=== PATIENT | male | born 1945 | race African-American/Black ===

== ENCOUNTER 2018-12-06 11:22 | Inpatient (IN) | payer BC, OTHER ==
[2018-12-06 12:14] VITALS: BMI 18.0
--- NOTE | 2018-12-06 15:49 | HP ---
CIWA Score - Admission Criteria [facility] Guidelines: Admission for Medically Managed Detox: Requires at least one of the followin. CIWA greater than 12 2. Seizures within the past 24 hours 3. Delirium tremens within the past 24 hours 4. Hallucinations within the past 24 hours 5. Acute intervention needed for co occurring medical disorder 6. Acute intervention needed for co occurring psychiatric disorder 7. Severe withdrawal that cannot be handled at a lower level of care (continued vomiting, continued diarrhea, abnormal vital signs) requiring intravenous medication and/or fluids 8. Admission ROS S - HPI Chief Complaint: "I am tired of being High." Patient is a YO male here for Rehab for Cocaine, Marijuana, and Alcohol use. Allergies/Adverse Reactions: Allergies Allergy/AdvReac Type Severity Reaction Status Date / Time No Known Allergies Allergy Verified 12/06/18 15:03 History of Present Illness: Patient is a 73 YO male here for Rehab for Cocaine, Marijuana, and Alcohol use. This is patient's first Rehab admission ever. Patient denies any history of Detox admission anywhere. Exam Limitations: No Limitations - Ebola screening Have you traveled outside of the country in the last 21 days: No Have you had contact with anyone from an Ebola affected area: No Have you been sick,other than usual withdrawal symptoms: No Do you have a fever: No - Review of Systems Constitutional: Loss of Appetite, Malaise, Unintentional Wgt. Loss (Lost approx. 40 lbs. over last Six months.) EENT: reports: No Symptoms Reported Respiratory: reports: No Symptoms reported, Shortness of Breath (Interrmittent, Patient reports this to be due to history of "Enlarged Heart." Uses MDI PRN to treat.) Cardiac: reports: No Symptoms Reported GI: reports: No Symptoms Reported : reports: No Symptoms Reported Musculoskeletal: reports: Joint Pain (Bilateral Feet, History of Gout.) Integumentary: reports: Other (Multiple Skin Ulcers on soles of bilateral feet.) Neuro: reports: No Symptoms reported Endocrine: reports: No Symptoms Reported Hematology: reports: No Symptoms Reported Psychiatric: reports: Judgement Intact, Mood/Affect Appropiate, Orientated x3, Depressed (Due to Current Life Circumstances.) Other Systems: Reviewed and Negative Patient History - Patient Medical History Hx Anemia: No Hx Asthma: No Hx Chronic Obstructive Pulmonary Disease (COPD): No Hx Cancer: No Hx Cardiac Disorders: Yes (enlarged heart; Only treated with ASA, 81mg. History of 3 MS's.) Hx Congestive Heart Failure: No Hx Hypertension: No Hx Hypercholesterolemia: No Hx Pacemaker: No HX Cerebrovascular Accident: No Hx Seizures: No Hx Dementia: No Hx Diabetes: No Hx Gastrointestinal Disorders: No Hx Liver Disease: No Hx Genitourinary Disorders: No Hx Sexually Transmitted Disorders: No Hx Renal Disease (ESRD): No Hx Thyroid Disease: No Hx Human Immunodeficiency Virus (HIV): No (Tested 2 days ago: NEGATIVE.) Hx Hepatitis C: No (Tested 2 days ago: NEGATIVE.) Hx Depression: Yes (Due to Current Life Circumstances. No Past Prescribed Medication.) Hx Suicide Attempt: No (PATIENT DENIES CURRENT SI / HI.) Hx Bipolar Disorder: No Hx Schizophrenia: No Other Medical History: Gout of Bilateral Feet. - Patient Surgical History Past Surgical History: No Hx Neurologic Surgery: No Hx Cataract Extraction: No Hx Cardiac Surgery: No Hx Lung Surgery: No Hx Breast Surgery: No Hx Breast Biopsy: No Hx Abdominal Surgery: No Hx Appendectomy: No Hx Cholecystectomy: No Hx Genitourinary Surgery: No Hx Section: No Hx Orthopedic Surgery: No Other Surgical History: DENIES. Anesthesia Reaction: No - PPD History Previous Implant?: Yes Documented Results: Positive w/o proof (Completed Full course of Antibiotic Treatment approx. 20 years ago.) Implanted On Prior [facility] Admission?: No PPD to be Administered?: No - Reproductive History Patient is a Female of Child Bearing Age (11 -55 yrs old): No (PATIENT IS MALE.) - Smoking Cessation Smoking history: Current some day smoker Have you smoked in the past 12 months: Yes Aproximately how many cigarettes per day: 4 Cigars Per Day: 0 Hx Chewing Tobacco Use: No Initiated information on smoking cessation: Yes 'Breaking Loose' booklet given: 12/06/18 (GIVEN TO PATIENT.) - Substance & Tx. History Hx Alcohol Use: Yes Hx Substance Use: Yes Substance Use Type: Alcohol, Cocaine, Marijuana Hx Substance Use Treatment: No - Substances Abused Crack Route: Smoking Frequency: Daily Amount used: $300-400 Age of first use: 52 Date of Last Use: 12/05/18 Alcohol-vodka Route: Oral Frequency: 3-6 times per week Amount used: 1 shot Age of first use: 10 Date of Last Use: 12/05/18 Marijuana/Hashish Route: Smoking Frequency: 1-2 times per week Amount used: < 1 Joint. Age of first use: 22 Date of Last Use: 12/02/18 Family Disease History - Family Disease History Family History: Denies Admission Physical Exam [facility] - Vital Signs Vital Signs: Vital Signs - 24 hr 12/06/18 12:08 Temperature 99.7 F H Pulse Rate 83 Respiratory 20 Rate Blood Pressure 120/70 - Physical General Appearance: Yes: No Apparent Distress, Nourished, Appropriately Dressed , Anxious HEENTM: Yes: Hearing grossly Normal, Normocephalic, Normal Voice, NIKO, Pharynx Normal Respiratory: Yes: Chest Non-Tender, No Respiratory Distress, No Accessory Muscle Use, Wheezing Neck: Yes: No masses,lesions,Nodules, Supple, Trachea in good position Breast: Yes: Breast Exam Deferred Cardiology: Yes: Regular Rhythm, Regular Rate, S1, S2 Abdominal: Yes: Normal Bowel Sounds, Non Tender, Flat, Soft Genitourinary: Yes: Within Normal Limits Back: Yes: Decreased Range of Motion Musculoskeletal: Yes: full range of Motion, Gait Steady, Joint Stiffness (Toes of Bilateral Feet.) Extremities: Yes: Normal Capillary Refill, Other (Patient reports pain (chronic ) in bilateral feet. No erythema or swelling noted on inspection of bilateral feet and toes.) 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: Yes: Fully Oriented, Alert, Normal Mood/Affect, Normal Response Integumentary: Yes: Normal Color, Dry, Warm, Other (Severely dry skin noted throughout on bilateral feet. Multiple ulcerations noted on bilateral feet. No erythema, discharge, or signs of infection noted at affected ulceration sites.) Lymphatic: Yes: Within Normal Limits - Diagnostic (1) Alcohol dependence, uncomplicated Current Visit: Yes Status: Chronic (2) Cocaine dependence, uncomplicated Current Visit: Yes Status: Chronic (3) Cannabis dependence, uncomplicated Current Visit: Yes Status: Chronic (4) Nicotine dependence Current Visit: Yes Status: Chronic Qualifiers: Nicotine product type: cigarettes Substance use status: uncomplicated Qualified Code(s): F17.210 - Nicotine dependence, cigarettes, uncomplicated (5) Ulcer of foot Current Visit: Yes Status: Acute Qualifiers: Laterality: unspecified laterality Non-pressure ulcer stage: limited to breakdown of skin Qualified Code(s): L97.501 - Non-pressure chronic ulcer of other part of unspecified foot limited to breakdown of skin Comment: Bilateral Feet. (6) Enlarged heart Current Visit: Yes Status: Suspected Cleared for Admission [facility] - Detox or Rehab Claeared for Rehab Admission: Yes [facility] Breath Alcohol Content Breath Alcohol Content: 0 Urine Drug Screen - Results Drug Screen Negative: No Urine Drug Screen Results: LANIE-Cocaine Inpatient Rehab Admission - Initial Determination Are CD services needed?: Yes Free of communicable disease: Yes Not in need of hospitalization: Yes - Rehab Admission Criteria Poor recovery environment: Yes Comorbidities: Yes Patient is meeting Inpatient Rehab admission criteria:: Yes
[2018-12-06] MEDS ORDERED: ALBUTEROL SO4 8 GM HFA INHALER IH PRN (15:51)
[2018-12-06] MEDS ORDERED: ALBUTEROL SO4 2.5/IPRATROPIUM 0.5 INH SOL 3 ML VIAL.NEB. NEB PRN (15:52)
[2018-12-06] MEDS ORDERED: P-EPHED 60MG/TRIPROLIDI 2.5MG TABLET PO PRN (16:09)
[2018-12-06] MEDS ORDERED: ACETAMINOPHEN 325 MG TABLET (FP) PO PRN (16:09)
[2018-12-06] MEDS ORDERED: MAGNESIUM CITRATE 300 ML BOTTLE PO PRN (16:09)
[2018-12-06] MEDS ORDERED: MENTHOL/PHENOL 1 EACH UD MM PRN (16:09)
[2018-12-06] MEDS ORDERED: LOPERAMIDE HCL 2 MG CAPSULE PO PRN (16:09)
[2018-12-06] MEDS ORDERED: MAGNESIUM HYDROX 2400MG/30ML ORAL SUSPENSION 30 ML CUP PO PRN (16:09)
[2018-12-06] MEDS ORDERED: MAG HYDROX/AL HYDROX/SIMETH 30 ML UNIT-DOSE CUP PO PRN (16:09)
[2018-12-06] MEDS ORDERED: IBUPROFEN 400 MG TABLET (FP) PO PRN (16:09)
[2018-12-06] MEDS ORDERED: POVIDONE-IODINE 10% SOLN 118 ML BOTTLE TP ONE (16:16)
[2018-12-06] MEDS ORDERED: SILVER SULFADIAZINE 1% TOP CREAM 50 GM JAR TP SCH (16:45)
[2018-12-06] MEDS: VITAMINS A AND D TOPICAL OINTMENT 60 GM TUBE TP SCH ×2 (18:05→21:20)
[2018-12-06] MEDS: ASPIRIN COATED 81 MG TABLET.EC PO SCH (18:05)
--- NOTE | 2018-12-06 18:34 | PN ---
S Progress Note Note: Objective: Patient has multiple dried, circular lesions on both feet at pressure sites. Skin on feet feet and between toes very dry and flaky with cracks. Toe nails are overgrown, thickened, flaky and dark in color. Assessment: Tinea Pedis Onychomycosis Plan: Tolnaftate cream BID (0600/1700) to feet Eucerine cream to feet HS Notify provider of any open sores or drainage.
[2018-12-06] MEDS: THIAMINE HCL 100 MG TABLET (FP) PO SCH (21:19)
[2018-12-06] MEDS: MINERAL OIL/PETROLAT/WATER TOPICAL CREAM 454 GM JAR TP SCH (21:21)
[2018-12-06] MEDS ORDERED: MELATONIN 5 MG TABLETS PO PRN (22:00)
[2018-12-07] MEDS: TOLNAFTATE 1% CREAM 15 GM TUBE TP SCH ×2 (06:01→17:08)
[2018-12-07] MEDS ORDERED: PT OWN MED DRAWER 7, Y5N ONE (06:58)
[2018-12-07 10:10] LABS: URINE APPEARANCE CLEAR; URINE BILIRUBIN NEGATIVE (<2.0 mg/dL); URINE COLOR LTYELLOW; URINE GLUCOSE (UA) NEGATIVE (NEGATIVE); URINE KETONE NEGATIVE (NEGATIVE); URINE LEUK ESTERASE NEGATIVE (NEGATIVE); URINE NITRITE NEGATIVE (NEGATIVE); URINE PROTEIN NEGATIVE (NEGATIVE); URINE UROBILINOGEN NEGATIVE mg/dL (0.2-1.0)
[2018-12-07] MEDS: ASPIRIN COATED 81 MG TABLET.EC PO SCH (11:34)
[2018-12-07] MEDS: VITAMINS A AND D TOPICAL OINTMENT 60 GM TUBE TP SCH ×4 (11:35→23:22)
[2018-12-07] MEDS: PRENATAL VITAMINS W/ FOLIC ACID TABLET (FP) PO SCH (11:36)
--- NOTE | 2018-12-07 14:42 | HP ---
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 Smokes 3-4 cigarettes daily Psychiatric History: Denies history of previous psychiatric treatment Physical/Sexual Abuse/Trauma History: Denies history of emotional, physical or sexual abuse as well as DV relationship. No service Additional Comment: Denies criminal history Vital Signs: Vital Signs - 24 hr 12/07/18 12/07/18 12/07/18 00:30 03:30 06:45 Temperature 98.4 F Pulse Rate 79 Respiratory 18 18 18 Rate Blood Pressure 122/70 Allergies/Adverse Reactions: Allergies Allergy/AdvReac Type Severity Reaction Status Date / Time No Known Allergies Allergy Verified 12/06/18 15:03 Date of last physical exam: 12/06/18 Concur with the findings of this exam: Yes - Substance Abuse/Tx History Hx Alcohol Use: Yes Hx Substance Use: Yes Substance Use Type: Alcohol (Started drinking alcohol at age 10, consumes one shot 3-6 times weekly. Last drank on 12/05/18), Cocaine (Startedsmoking crack cocaine at age 52, consumes $300-400 daily. Last smoked on 12/05/18), Marijuana ( Started smoking marijuana at age 22, consumes one joint 1-2 times daily. Last smoked on 12/02/18) Hx Substance Use Treatment: No Mental Status Exam - Mental Status Exam Alert and Oriented to: Time, Place, Person Cognitive Function: Fair Patient Appearance: Disheveled Mood: Irritable Affect: Appropriate Patient Behavior: Uncooperative Speech Pattern: Clear Voice Loudness: Normal Thought Process: Intact, Goal Oriented Hallucinations: Denies Suicidal Ideation: Denies Homicidal Ideation: Denies Insight/Judgement: Fair Sleep: Well Appetite: Poor Muscle strength/Tone: Normal Gait/Station: Normal Psychiatric Findings - Problem List ([place] 1, 2,3) (1) Alcohol dependence Current Visit: Yes Status: Acute (2) Cocaine dependence Current Visit: Yes Status: Acute (3) Cannabis dependence Current Visit: Yes Status: Acute (4) Nicotine dependence Current Visit: Yes Status: Chronic Qualifiers: Nicotine product type: cigarettes Substance use status: uncomplicated Qualified Code(s): F17.210 - Nicotine dependence, cigarettes, uncomplicated (5) Substance induced mood disorder Current Visit: Yes Status: Acute (6) Cardiomegaly Current Visit: Yes Status: Chronic (7) Gout Current Visit: Yes Status: Chronic (8) Myocardial infarction Current Visit: Yes Status: Chronic (9) Pulmonary TB Current Visit: Yes Status: Resolved (10) Arthritis Current Visit: Yes Status: Chronic - Initial Treatment Plan Initial Treatment Plan: Monitor progress
[2018-12-07] MEDS: guaiFENesin/D-METHORPHAN HB 10 ML UNIT-DOSE CUPS PO PRN (16:12)
[2018-12-07] MEDS ORDERED: ALBUTEROL SO4 2.5/IPRATROPIUM 0.5 INH SOL 3 ML VIAL.NEB. NEB PRN (16:18)
--- NOTE | 2018-12-07 16:26 | PN ---
[facility] Progress Note Note: PT C/O COUGH AND CHEST CONGESTION AND COUGHING UP YELLOWISH SPUTUM. HX OF ASTHMA. PT WAS ADMITTED YESTERDAY TO REHAB. OOB IN NO ACUTE DISTRESS. Vital Signs - 24 hr 12/07/18 12/07/18 12/07/18 00:30 03:30 06:45 Temperature 98.4 F Pulse Rate 79 Respiratory 18 18 18 Rate Blood Pressure 122/70 LUNGS:VERY CONGESTED WITH MODERATE AND SIGNIFICANT RHONCHI DI:ASTHMA ACUTE BRONCHITIS PLAN:AUGMENTIN 875 MG PO BID INCREASE PO FLUIDS NEBULIZER TX DIRECTED.
[2018-12-07] MEDS: AMOX TR/POT CLAV 875MG/125MG TABLETS (FP) PO SCH (17:08)
[2018-12-07] MEDS: ALBUTEROL SO4 2.5/IPRATROPIUM 0.5 INH SOL 3 ML VIAL.NEB. NEB SCH (23:22)
[2018-12-07] MEDS: MINERAL OIL/PETROLAT/WATER TOPICAL CREAM 454 GM JAR TP SCH (23:22)
[2018-12-07] MEDS: THIAMINE HCL 100 MG TABLET (FP) PO SCH (23:22)
[2018-12-08] MEDS: TOLNAFTATE 1% CREAM 15 GM TUBE TP SCH ×2 (06:43→18:04)
[2018-12-08] MEDS: AMOX TR/POT CLAV 875MG/125MG TABLETS (FP) PO SCH ×2 (07:03→18:04)
[2018-12-08] MEDS: ASPIRIN COATED 81 MG TABLET.EC PO SCH (10:04)
[2018-12-08] MEDS: guaiFENesin/D-METHORPHAN HB 10 ML UNIT-DOSE CUPS PO PRN (10:04)
[2018-12-08] MEDS: PRENATAL VITAMINS W/ FOLIC ACID TABLET (FP) PO SCH (10:04)
[2018-12-08] MEDS: ALBUTEROL SO4 2.5/IPRATROPIUM 0.5 INH SOL 3 ML VIAL.NEB. NEB SCH ×4 (10:05→20:20)
[2018-12-08] MEDS: VITAMINS A AND D TOPICAL OINTMENT 60 GM TUBE TP SCH ×4 (10:06→22:18)
--- NOTE | 2018-12-08 12:18 | PN ---
[facility] Progress Note Note: RECEIVED NOTICE FROM RN THAT PATIENT REFUSED DOSE OF AUGMENTIN (FOR TREATMENT OF BRONCHITIS) FROM EARLIER TODAY. ALSO RECEIVED NOTICE THAT PATIENT REFUSED TO AHVE CXR DONE YESTERDAY INITIALLY SCHEDULED ON ADMISSION (FOR HISTORY OF POSITIVE PPD). WAREHOUSE FOREMAN CAME TO UNIT AND SPOKE WITH PATIENT. PATIENT REFUSED MEDICATION BECAUSE HE "THOUGHT THAT HE WAS SUPPOSED TO RECEIVE PENICILLIN HIS ANTIBIOTIC." WAREHOUSE FOREMAN EXPLAINED THAT AUGMENTIN IN ANTIBIOTIC THAT WAS PRESCRIBED FOR PATIENT FOR HIS SPECIFIC CONDITION.. PATIENT VERBALIZED UNDERSTANDING OF EXPLANATION. PATIENT ALSO ENCOURAGED TO HAVE CXR DONE ON 12/10/2018 IN AM (NEXT TIME THAT [facility] RADIOLOGY DEPARTMENT IS OPENED) FOR HISTORY OF POSITIVE PPD AND TO ASSESS FOR ANY OTHER POSSIBLE RESPIRATORY ABNORMALITIES ( PATIENT HAS HISTORY OF DYSPNEA BUT DENIES ANY KNOWN HISTORY LUNG DISEASE) PATIENT AGREED TO DO SO. 1-TIME DOSE OF AUGMENTIN (875 MG PO) ORDERED TO REPLACE DOSE THAT PATIENT REFUSED FROM EARLIER TODAY. Svaannah RIOS NP
[2018-12-08] MEDS ORDERED: AMOX TR/POT CLAV 875MG/125MG TABLETS (FP) PO ONE (12:30)
[2018-12-08] MEDS: MINERAL OIL/PETROLAT/WATER TOPICAL CREAM 454 GM JAR TP SCH (22:18)
[2018-12-08] MEDS: THIAMINE HCL 100 MG TABLET (FP) PO SCH (22:18)
[2018-12-09] MEDS: TOLNAFTATE 1% CREAM 15 GM TUBE TP SCH ×2 (06:09→17:32)
[2018-12-09] MEDS: AMOX TR/POT CLAV 875MG/125MG TABLETS (FP) PO SCH ×2 (07:29→17:32)
[2018-12-09] MEDS: ALBUTEROL SO4 2.5/IPRATROPIUM 0.5 INH SOL 3 ML VIAL.NEB. NEB SCH ×4 (08:38→22:19)
[2018-12-09] MEDS: PRENATAL VITAMINS W/ FOLIC ACID TABLET (FP) PO SCH (09:58)
[2018-12-09] MEDS: ASPIRIN COATED 81 MG TABLET.EC PO SCH (09:58)
[2018-12-09] MEDS: VITAMINS A AND D TOPICAL OINTMENT 60 GM TUBE TP SCH ×4 (09:59→22:20)
[2018-12-09] MEDS ORDERED: PT OWN MED DRAWER 7, Y5N ONE ×3 (17:12→22:20)
[2018-12-09] MEDS: THIAMINE HCL 100 MG TABLET (FP) PO SCH (22:19)
[2018-12-09] MEDS: MINERAL OIL/PETROLAT/WATER TOPICAL CREAM 454 GM JAR TP SCH (22:21)
[2018-12-10] MEDS: guaiFENesin/D-METHORPHAN HB 10 ML UNIT-DOSE CUPS PO PRN ×2 (06:20→11:23)
[2018-12-10] MEDS: TOLNAFTATE 1% CREAM 15 GM TUBE TP SCH ×2 (06:21→17:05)
[2018-12-10] MEDS: AMOX TR/POT CLAV 875MG/125MG TABLETS (FP) PO SCH (07:09)
[2018-12-10] MEDS: ALBUTEROL SO4 2.5/IPRATROPIUM 0.5 INH SOL 3 ML VIAL.NEB. NEB SCH ×4 (07:09→21:38)
[2018-12-10] MEDS ORDERED: predniSONE 20 MG TABLET (UD) PO ONE (10:11)
--- NOTE | 2018-12-10 10:19 | PN ---
[facility] Progress Note Note: PATIENT SEEN FOR C/O DRY COUGH AND WHEEZING. PATIENT CURRENTLY ON AUGMENTIN BUT STATES HE HAS BEEN TREATED WITH ONLY PCN ABX IN PAST WITH BETTER EFFECT. PATIENT DENIES FEVER, SOB AND CHEST PAIN AT THIS TIME. PATIENT ALSO REQUESTED TO RESUME COUMADIN THAT WAS GIVEN TO HIM OVER ONE YEAR AGO. PATIENT NONCOMPLIANT WITH MEDICATION AND PCP FOLLOW UP. UNABLE TO PROVIDE REASON FOR MEDICATION. Vital Signs Temperature 97.7 F 12/10/18 06:39 Pulse Rate 72 12/10/18 06:39 Respiratory Rate 18 12/10/18 06:39 Blood Pressure 112/68 12/10/18 06:39 O2 Sat by Pulse Oximetry (%) Laboratory Tests 12/07/18 08:45 Urine Color Ltyellow Urine Appearance Clear Urine pH 6.0 Ur Specific [place] 1.014 Urine Protein Negative Urine Glucose (UA) Negative Urine Ketones Negative Urine Blood Negative Urine Nitrite Negative Urine Bilirubin Negative Urine Urobilinogen Negative Ur Leukocyte Esterase Negative PE: ALERT AND ORIENTED X 3 SKIN WARM AND DRY CAR S1S2 RESP + SCATTERED WHEEZES, NO RALES OR RHONCHI EXT FULL ROM, NO EDEMA A/P URI EXACERBATION OF ASTHMA/ ? COPD WILL CHANGE AUGMENTIN TO AMOXIL 500MG TID FOR 4 MORE DAYS ADD PREDNISONE 20MG BID X 5 DAYS CXR TODAY ROBITUSSIN AND ALBUTEROL PRN CONTINUE TO MONITOR CLINICALLY
[2018-12-10] MEDS: ASPIRIN COATED 81 MG TABLET.EC PO SCH (10:26)
[2018-12-10] MEDS: PRENATAL VITAMINS W/ FOLIC ACID TABLET (FP) PO SCH (10:26)
[2018-12-10] MEDS: VITAMINS A AND D TOPICAL OINTMENT 60 GM TUBE TP SCH ×4 (10:26→21:38)
[2018-12-10] MEDS: AMOXICILLIN 500 MG CAPSULE (FP) PO SCH ×2 (13:50→21:37)
[2018-12-10] MEDS ORDERED: PT OWN MED DRAWER 7, Y5N ONE (19:29)
[2018-12-10] MEDS: predniSONE 20 MG TABLET (UD) PO SCH (21:37)
[2018-12-10] MEDS: MINERAL OIL/PETROLAT/WATER TOPICAL CREAM 454 GM JAR TP SCH (21:38)
[2018-12-10] MEDS: THIAMINE HCL 100 MG TABLET (FP) PO SCH (21:38)
[2018-12-11] MEDS: AMOXICILLIN 500 MG CAPSULE (FP) PO SCH ×3 (06:20→21:34)
[2018-12-11] MEDS: TOLNAFTATE 1% CREAM 15 GM TUBE TP SCH ×2 (06:23→17:05)
[2018-12-11] MEDS: ALBUTEROL SO4 2.5/IPRATROPIUM 0.5 INH SOL 3 ML VIAL.NEB. NEB SCH ×4 (07:05→21:34)
--- NOTE | 2018-12-11 09:31 | PN ---
[facility] Progress Note Note: CXR REVIEWED AND RESULTS NORMAL. WILL CONTINUE CURRENT TREATMENT WITH STEROIDS/ AMOXICILLIN. CONTINUE TO MONITOR. Vital Signs Temperature 97.4 F H 12/11/18 06:48 Pulse Rate 94 H 12/11/18 06:48 Respiratory Rate 20 12/11/18 06:48 Blood Pressure 118/74 12/11/18 06:48 O2 Sat by Pulse Oximetry (%)
[2018-12-11] MEDS: predniSONE 20 MG TABLET (UD) PO SCH ×2 (10:21→21:34)
[2018-12-11] MEDS: PRENATAL VITAMINS W/ FOLIC ACID TABLET (FP) PO SCH (10:21)
[2018-12-11] MEDS: ASPIRIN COATED 81 MG TABLET.EC PO SCH (10:21)
[2018-12-11] MEDS: VITAMINS A AND D TOPICAL OINTMENT 60 GM TUBE TP SCH ×4 (10:23→21:34)
[2018-12-11] MEDS: THIAMINE HCL 100 MG TABLET (FP) PO SCH (21:34)
[2018-12-11] MEDS: MINERAL OIL/PETROLAT/WATER TOPICAL CREAM 454 GM JAR TP SCH (21:34)
[2018-12-12] MEDS: TOLNAFTATE 1% CREAM 15 GM TUBE TP SCH ×2 (06:16→17:00)
[2018-12-12] MEDS: AMOXICILLIN 500 MG CAPSULE (FP) PO SCH ×3 (06:16→22:03)
[2018-12-12 06:35] VITALS: PULSE 70
[2018-12-12] MEDS: ALBUTEROL SO4 2.5/IPRATROPIUM 0.5 INH SOL 3 ML VIAL.NEB. NEB SCH ×4 (07:40→22:04)
[2018-12-12] MEDS: predniSONE 20 MG TABLET (UD) PO SCH ×2 (10:09→22:03)
[2018-12-12] MEDS: ASPIRIN COATED 81 MG TABLET.EC PO SCH (10:09)
[2018-12-12] MEDS: PRENATAL VITAMINS W/ FOLIC ACID TABLET (FP) PO SCH (10:09)
[2018-12-12] MEDS: guaiFENesin/D-METHORPHAN HB 10 ML UNIT-DOSE CUPS PO PRN (10:11)
[2018-12-12] MEDS: VITAMINS A AND D TOPICAL OINTMENT 60 GM TUBE TP SCH ×4 (10:12→22:04)
[2018-12-12] MEDS: THIAMINE HCL 100 MG TABLET (FP) PO SCH (22:03)
[2018-12-12] MEDS: MINERAL OIL/PETROLAT/WATER TOPICAL CREAM 454 GM JAR TP SCH (22:04)
[2018-12-13] MEDS: AMOXICILLIN 500 MG CAPSULE (FP) PO SCH (06:27)
[2018-12-13] MEDS: TOLNAFTATE 1% CREAM 15 GM TUBE TP SCH (06:27)
[2018-12-13 06:48] VITALS: BP 125/81; TEMP 97.7
[2018-12-13] MEDS: ALBUTEROL SO4 2.5/IPRATROPIUM 0.5 INH SOL 3 ML VIAL.NEB. NEB SCH (07:06)
--- NOTE | 2018-12-13 09:58 | PN ---
Psychiatric Progress Note Vital Signs: Vital Signs Period Temp Pulse Resp BP Sys/[place] Pulse Ox Last 24 Hr 97.7 F 70 18-18 125/81 Date of Session: 12/13/18 Chief Complaint:: Discharge Note HPI: Patient addressing alcohol , cocaine and cannabis dependence comorbid with nicotine dependence, substance-induced mood disorder ROS: Cardiomegaly, Gout, arthritis, H/O MT, S/P Pulmonary TB were medically managed Current Medications: Active Medications Generic Name Dose Route Start Last Admin Trade Name Freq PRN Reason Stop Dose Admin Acetaminophen 650 mg 12/06/18 16:09 Tylenol - PO Q4H PRN FEVER Al Hydroxide/Mg Hydroxide 30 ml 12/06/18 16:09 Mylanta Oral Suspension - PO Q6H PRN DYSPEPSIA Albuterol Sulfate 2 puff 12/06/18 15:51 12/12/18 11:20 Ventolin Hfa Inhaler - IH 2 puff Q4H PRN Administration SHORT OF BREATH/WHEEZING Albuterol/Ipratropium 1 amp 12/07/18 16:18 Duoneb - NEB Q4H PRN SHORTNESS OF BREATH Albuterol/Ipratropium 1 amp 12/07/18 20:00 12/13/18 07:06 Duoneb - NEB Not Given RQID APRIL Amoxicillin 500 mg 12/10/18 14:00 12/13/18 06:27 Amoxicillin - PO 12/14/18 13:59 500 mg TID APRIL Administration Aspirin 81 mg 12/06/18 16:45 12/12/18 10:09 Ecotrin - PO 81 mg DAILY APRIL Administration Eucalyptus/Menthol/Phenol/Sorbitol 1 each 12/06/18 16:09 Cepastat Lozenge - MM Q4H PRN SORE THROAT Guaifenesin 10 ml 12/06/18 16:09 12/12/18 10:11 Robitussin Dm - PO 10 ml Q6H PRN Administration COUGH Ibuprofen 400 mg 12/06/18 16:09 Motrin - PO Q6H PRN Pain level 4-6 Loperamide HCl 4 mg 12/06/18 16:09 Imodium - PO Q6H PRN DIARRHEA Magnesium Citrate 300 ml 12/06/18 16:09 Citroma - PO Q48H PRN CONSTIPATION Magnesium Hydroxide 30 ml 12/06/18 16:09 Milk Of Magnesia - PO DAILY PRN CONSTIPATION Melatonin 5 mg 12/06/18 22:00 Melatonin PO HS PRN INSOMNIA Multi-Ingredient Lotion 1 applic 12/06/18 22:00 12/12/18 22:04 Eucerin (Large Jar) - TP 1 applic HS APRIL Administration Prednisone 20 mg 12/10/18 22:00 12/12/18 22:03 Deltasone - PO 12/15/18 21:59 20 mg BID APRIL Administration Multivit/Folic Acid/Iron 1 tab 12/07/18 10:00 12/12/18 10:09 Vitamins (Sjr) - PO 1 tab DAILY APRIL Administration Pseudoephedrine/Triprolidine 1 combo 12/06/18 16:09 Actifed - PO TID PRN NASAL CONGESTION Thiamine HCl 100 mg 12/06/18 22:00 12/12/18 22:03 Vitamin B1 - PO 100 mg HS APRIL Administration Tolnaftate 1 applic 12/07/18 06:00 12/13/18 06:27 Tinactin 1% Cream - TP 1 applic BID@0600,1700 APRIL Administration Vitamin A/Vitamin D 1 applic 12/06/18 18:00 12/12/18 22:04 Vitamin A & D Top Oint - TP 1 applic QID APRIL Administration Current Side Effect: No Lab tests ordered: Yes Lab tests reviewed: Yes Provider note:: Patient has completed this program today. He has met his treatment goals and will continue to address his issues in outpatient at [facility] at [address] [place] [address]. Told insurance underwriter sales that from his participation in this program, he has learned the importance of making meetings and get a sponsor. He is stable for discharge today Total face to face time:: 35 Mental Status Exam - Mental Status Exam Alert and Oriented to: Time, Place, Person Cognitive Function: Fair Patient Appearance: Well Groomed Mood: Hopeful, Euthymic Affect: Appropriate Patient Behavior: Cooperative Speech Pattern: Clear Voice Loudness: Normal Thought Process: Intact, Goal Oriented Thought Disorder: Not Present Hallucinations: Denies Suicidal Ideation: Denies Homicidal Ideation: Denies Insight/Judgement: Fair Sleep: Fair Appetite: Good Muscle strength/Tone: Normal Gait/Station: Normal Psychiatric Treatment Plan - Problem List (1) Alcohol dependence Current Visit: Yes (2) Cocaine dependence Current Visit: Yes (3) Cannabis dependence Current Visit: Yes (4) Nicotine dependence Current Visit: Yes Qualifiers: Nicotine product type: cigarettes Substance use status: uncomplicated Qualified Code(s): F17.210 - Nicotine dependence, cigarettes, uncomplicated (5) Substance induced mood disorder Current Visit: Yes (6) Cardiomegaly Current Visit: Yes (7) Gout Current Visit: Yes (8) Myocardial infarction Current Visit: Yes (9) Pulmonary TB Current Visit: Yes (10) Arthritis Current Visit: Yes Initial treatment plan: Patient is discharged today and referred to [facility] for outpatient treatment
[2018-12-13] MEDS: predniSONE 20 MG TABLET (UD) PO SCH (10:08)
[2018-12-13] MEDS: PRENATAL VITAMINS W/ FOLIC ACID TABLET (FP) PO SCH (10:08)
[2018-12-13] MEDS: ASPIRIN COATED 81 MG TABLET.EC PO SCH (10:08)
[2018-12-13] MEDS: VITAMINS A AND D TOPICAL OINTMENT 60 GM TUBE TP SCH (10:09)
[2018-12-13] MEDS ORDERED: PT OWN MED DRAWER 7, Y5N ONE ×2 (10:10→10:34)
--- NOTE | 2018-12-13 13:10 | PN ---
[facility] Progress Note Note: PATIENT COMPLETED REHAB TODAY WITHOUT ADVERSE EVENT. MEDICALLY STABLE AND DENIES SI/HI. PATIENT TO FOLLOW UP WITH [facility] FOR OUTPATIENT ADDICTION TREATMENT. PATIENT ENCOURAGED TO CONTINUE OUTPATIENT TREATMENT BY STAFF TO PREVENT RELAPSE. INHALER/MEDICATIONS SENT TO PREFERRED PHARMACY. Vital Signs Temperature 97.7 F 12/13/18 06:47 Pulse Rate 70 12/13/18 06:47 Respiratory Rate 18 12/13/18 06:47 Blood Pressure 125/81 12/13/18 06:47 O2 Sat by Pulse Oximetry (%)
== END 2018-12-13 11:20 | disposition home or self-care (01) | DRG 895 ==
LOC: YASAS 11:22 → Y3W 16:33
PROVIDERS: ADMIT Psychiatry & Neurology Psychiatry; ATTEND Psychiatry & Neurology Psychiatry
PROC: HZ42ZZZ Group Counseling for Substance Abuse Treatment, Cognitive-Behavioral (ICD-10-PCS; principal; 2018-12-06)
DX: F10.20 Alcohol dependence, uncomplicated (principal); F14.20 Cocaine dependence, uncomplicated; J45.901 Unspecified asthma with (acute) exacerbation; F12.20 Cannabis dependence, uncomplicated; F17.210 Nicotine dependence, cigarettes, uncomplicated; F19.24 Other psychoactive substance dependence with psychoactive substance-induced mood disorder; B35.3 Tinea pedis; B35.1 Tinea unguium; I25.2 Old myocardial infarction; M10.9 Gout, unspecified; J20.9 Acute bronchitis, unspecified; Z86.11 Personal history of tuberculosis
CPT/HCPCS: 71046-TC-FY; 81003; 94640

== ENCOUNTER 2019-07-04 14:11 | Inpatient (IN) | payer BC, OTHER | END 2019-07-09 12:20 | disposition home or self-care (01) | LOC: YASAS 14:11 → Y3N 18:14 ==

== ENCOUNTER 2019-11-26 12:53 | Inpatient (IN) | payer BC, OTHER ==
[2019-11-26 14:57] VITALS: BMI 18.8
--- NOTE | 2019-11-26 15:37 | HP ---
CIWA Score Nausea/Vomitin-No Nausea/No Vomiting Muscle Tremors: 1-None Visible, but [place] Anxiety: 1-Mildly Anxious Agitation: 1-Slight > Activity Paroxysmal Sweats: No Perspiration Orientation: 0-Oriented Tacttile Disturbances: 0-None Auditory Disturbances: 0-None Visual Disturbances: 0-None Headache: 0-None Present CIWA-Ar Total Score: 3 - Admission Criteria OASAS Guidelines: Admission for Medically Managed Detox: Requires at least one of the followin. CIWA greater than 12 2. Seizures within the past 24 hours 3. Delirium tremens within the past 24 hours 4. Hallucinations within the past 24 hours 5. Acute intervention needed for co occurring medical disorder 6. Acute intervention needed for co occurring psychiatric disorder 7. Severe withdrawal that cannot be handled at a lower level of care (continued vomiting, continued diarrhea, abnormal vital signs) requiring intravenous medication and/or fluids 8. Admitting History and Physical - Admission Chief Complaint: i am here for rehab from cocaine,marijuana and alcohol History of Present Illness: this 74 years old male with alcohol,cocaine,marijuana abused,admitted in [facility] for pneumonia and discharge today, on zithromycin 250 mgs for 2 more day and predinisone 5o mgs for one day weight loss no seizure no syncope smoke 2 cigarette/day home less History Source: Patient Limitations to Obtaining History: No Limitations - Past Medical History Pulmonary: Yes: Other (walking pneumonia discharged today from [facility]) - Smoking History Smoking history: Current some day smoker Have you smoked in the past 12 months: Yes Aproximately how many cigarettes per day: 7 - Alcohol/Substance Use Hx Alcohol Use: Yes History of Substance Use: reports: Cocaine - Social History Usual Living Arrangement: Yes: Other (homeless) ADL: Support Services Admission [facility] Chief Complaint: i need help to go to rehab from alcohol,cocaine and marijuana Allergies/Adverse Reactions: Allergies Allergy/AdvReac Type Severity Reaction Status Date / Time No Known Allergies Allergy Verified 11/26/19 14:44 History of Present Illness: this 74 years old male with alcohol,cocaine and marijuana dependence,seeking rehab,admitted for walking pneumonia discharged from [facility] today ,still on zithromax and prednisone weight loss feel weak smoke 7 cigarette homeless Exam Limitations: No Limitations - Ebola screening Have you traveled outside of the country in the last 21 days: No Have you had contact with anyone from an Ebola affected area: No Do you have a fever: No - Review of Systems Constitutional: No Symptoms Reported, Loss of Appetite EENT: reports: No Symptoms Reported Respiratory: reports: Other (coughing) Cardiac: reports: No Symptoms Reported, Other (history of old mi and cardiomyopathy) GI: reports: Poor Appetite : reports: No Symptoms Reported Musculoskeletal: reports: Muscle Pain Integumentary: reports: Dryness Endocrine: reports: No Symptoms Reported Hematology: reports: No Symptoms Reported Psychiatric: reports: No Sypmtoms Reported Other Systems: Reviewed and Negative Patient History - Patient Medical History Hx Anemia: No Hx Asthma: No Hx Chronic Obstructive Pulmonary Disease (COPD): No Hx Cancer: No Hx Cardiac Disorders: Yes (enlarged heart; Only treated with ASA, 81mg. History of 3 MN's.) Hx Congestive Heart Failure: No Hx Hypertension: No Hx Hypercholesterolemia: Yes Hx Pacemaker: No HX Cerebrovascular Accident: No Hx Seizures: No Hx Dementia: No Hx Diabetes: No Hx Gastrointestinal Disorders: No Hx Liver Disease: No Hx Genitourinary Disorders: No Hx Sexually Transmitted Disorders: No Hx Renal Disease (ESRD): No Hx Thyroid Disease: No Hx Human Immunodeficiency Virus (HIV): No (Tested 2 days ago: NEGATIVE.) Hx Hepatitis C: No (Tested 2 days ago: NEGATIVE.) Hx Depression: Yes (Due to Current Life Circumstances. No Past Prescribed Medication.) Hx Suicide Attempt: No (PATIENT DENIES CURRENT SI / HI.) Hx Bipolar Disorder: No Hx Schizophrenia: No Other Medical History: no suiidal,no homicidal - Patient Surgical History Past Surgical History: No Hx Neurologic Surgery: No Hx Cataract Extraction: No Hx Cardiac Surgery: No Hx Lung Surgery: No Hx Breast Surgery: No Hx Breast Biopsy: No Hx Abdominal Surgery: No Hx Appendectomy: No Hx Cholecystectomy: No Hx Genitourinary Surgery: No Hx Section: No Hx Orthopedic Surgery: No Other Surgical History: DENIES. Anesthesia Reaction: No - PPD History Previous Implant?: Yes Documented Results: Positive w/proof PPD to be Administered?: No - Smoking Cessation Smoking history: Current some day smoker Have you smoked in the past 12 months: Yes Aproximately how many cigarettes per day: 7 Cigars Per Day: 0 Hx Chewing Tobacco Use: No Initiated information on smoking cessation: Yes 'Breaking Loose' booklet given: 11/26/19 - Substance & Tx. History Hx Alcohol Use: Yes Substance Use Type: Alcohol, Cocaine, Marijuana Hx Substance Use Treatment: Yes (07/04/19 to 07/09/19 [facility] ) - Substances abused Cocaine Substance route: Smoking Frequency: Daily Amount used: $100 Age of first use: 17 Date of last use: 11/19/19 Alcohol Substance route: Oral Frequency: Daily Amount used: 6 pack of beer Age of first use: 17 Date of last use: 11/19/19 Marijuana/Hashish Substance route: Smoking Frequency: Daily Amount used: dime bag Age of first use: 17 Date of last use: 11/19/19 Admission Physical Exam S - Vital Signs Vital Signs: Vital Signs - 24 hr 11/26/19 14:43 Temperature 97.4 F L Pulse Rate 75 Respiratory 20 Rate Blood Pressure 103/71 - Physical General Appearance: Yes: Within Normal Limits HEENTM: Yes: Normal ENT Inspection, NIKO, Pharynx Normal Respiratory: Yes: Lungs Clear, No Respiratory Distress Neck: Yes: Within Normal Limits, Supple, Trachea in good position Breast: Yes: Within Normal Limits Cardiology: Yes: Within Normal Limits, Regular Rhythm, Regular Rate, S1, S2 Abdominal: Yes: Within Normal Limits Genitourinary: Yes: Within Normal Limits Back: Yes: Within Normal Limits Musculoskeletal: Yes: Within Normal Limits Extremities: Yes: Within Normal Limits 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: 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: 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 intact, Fully Oriented, Alert, Motor Strength 5/5 Integumentary: Yes: Dry Lymphatic: Yes: Within Normal Limits - Diagnostic (1) Alcohol dependence Current Visit: No Status: Acute (2) Cocaine dependence Current Visit: No Status: Acute (3) Nicotine dependence Current Visit: No Status: Acute Qualifiers: Nicotine product type: cigarettes Substance use status: in withdrawal Qualified Code(s): F17.213 - Nicotine dependence, cigarettes, with withdrawal (4) Asthma Current Visit: No Status: Chronic Qualifiers: Asthma severity: mild Asthma persistence: intermittent Asthma complication type: with status asthmaticus Qualified Code(s): J45.22 - Mild intermittent asthma with status asthmaticus (5) CAD (coronary artery disease) Current Visit: No Status: Chronic Qualifiers: Coronary Disease-Associated Artery/Lesion type: unspecified vessel or lesion type [place] vs. 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 (9) Old MN (myocardial infarction) Current Visit: Yes Status: Acute (10) History of pneumonia Current Visit: Yes Status: Acute Cleared for Admission [facility] - Detox or Rehab Claeared for Rehab Admission: Yes Breathalyzer - Breathalyzer Breathalyzer: 0 Urine Drug Screen - Test Device Lot number: [id number] Expiration date: 03/26/21 - Control Is test valid?: Yes - Results Drug screen NEGATIVE: No Urine drug screen results: THC-Marijuana, LANIE-Cocaine Inpatient Rehab Admission - Rehab Decision to Admit Inpatient rehab admission?: Yes - Initial Determination Are CD services needed?: Yes Free of communicable disease: Yes Not in need of hospitalization: Yes - Rehab Admission Criteria Previous failed treatment: Yes Poor recovery environment: Yes Comorbidities: Yes Lacks judgement: No Patient is meeting Inpatient Rehab admission criteria:: Yes
[2019-11-26] MEDS ORDERED: MENTHOL/PHENOL 1 EACH UD MM PRN (15:54)
[2019-11-26] MEDS ORDERED: MAG HYDROX/AL HYDROX/SIMETH 30 ML UNIT-DOSE CUP PO PRN (15:54)
[2019-11-26] MEDS ORDERED: LOPERAMIDE HCL 2 MG CAPSULE PO PRN (15:54)
[2019-11-26] MEDS ORDERED: ACETAMINOPHEN 325 MG TABLET (FP) PO PRN (15:54)
[2019-11-26] MEDS ORDERED: MAGNESIUM CITRATE 300 ML BOTTLE PO PRN (15:54)
[2019-11-26] MEDS ORDERED: MAGNESIUM HYDROX 2400MG/30ML ORAL SUSPENSION 30 ML CUP PO PRN (15:54)
[2019-11-26] MEDS ORDERED: P-EPHED 60MG/TRIPROLIDI 2.5MG TABLET PO PRN (15:54)
[2019-11-26] MEDS ORDERED: IBUPROFEN 400 MG TABLET (FP) PO PRN (15:54)
[2019-11-26] MEDS ORDERED: hydrOXYzine PAMOATE 25 MG CAPSULE (FP) PO PRN (15:54)
[2019-11-26] MEDS ORDERED: ALBUTEROL SO4 8 GM HFA INHALER IH PRN (15:57)
[2019-11-26] MEDS: THIAMINE HCL 100 MG TABLET (FP) PO SCH (21:25)
[2019-11-26] MEDS ORDERED: MELATONIN 5 MG TABLETS PO PRN (22:00)
[2019-11-27] MEDS: PRENATAL VITAMINS W/ FOLIC ACID TABLET (FP) PO SCH (09:54)
[2019-11-27] MEDS: ASPIRIN COATED 81 MG TABLET.EC PO SCH (09:54)
[2019-11-27] MEDS ORDERED: AZITHROMYCIN 250 MG TABLET PO SCH (10:00)
[2019-11-27] MEDS ORDERED: predniSONE 20 MG TABLET (UD) PO ONE (10:00)
[2019-11-27] MEDS ORDERED: PATIENT'S OWN MEDICATION (NON-FORMULARY) (Prednisone [Prednisone 50 Mg Tablets] 50 MG) PO ONE (10:00)
[2019-11-27] MEDS ORDERED: predniSONE 40 MG, predniSONE 10 MG PO ONE (10:00)
[2019-11-27] MEDS: TIOTROPIUM BROMIDE 2.5 MCG (SPIRIVA) RESPIMAT INHALER IH SCH (10:03)
[2019-11-27 11:43] LABS: EPI CELLS 4.7 /HPF (0-5/HPF); HYALINE CASTS 38 /lpf (0-8); URINE APPEARANCE CLEAR; URINE BACTERIA 20.6 /hpf (NEGATIVE); URINE BILIRUBIN NEGATIVE (NEGATIVE); URINE COLOR YELLOW; URINE GLUCOSE (UA) NEGATIVE (NEGATIVE); URINE KETONE NEGATIVE (NEGATIVE); URINE LEUK ESTERASE TRACE (NEGATIVE); URINE NITRITE NEGATIVE (NEGATIVE); URINE PROTEIN NEGATIVE (NEGATIVE); URINE RBC 0 /hpf (0-4); URINE UROBILINOGEN 0.2 mg/dL (0.2-1.0); URINE WBC 2 /hpf (0-5)
[2019-11-27] MEDS: VITAMINS A AND D TOPICAL OINTMENT 60 GM TUBE TP SCH ×2 (15:04→18:00)
--- NOTE | 2019-11-27 17:58 | PN ---
[facility] Progress Note Note: Patient admitted to rehab for alcohol, cocaine and marijuana dependence. Currently on treatment for Pneumonia. Labs reviewed, Vital signs stable. Laboratory Tests 11/27/19 03:52 Urine Color Yellow Urine Appearance Clear Urine pH 6.0 Ur Specific [place] 1.022 Urine Protein Negative Urine Glucose (UA) Negative Urine Ketones Negative Urine Blood Negative Urine Nitrite Negative Urine Bilirubin Negative Urine Urobilinogen 0.2 Ur Leukocyte Esterase Trace Urine WBC (Auto) 2 Urine RBC (Auto) 0 Urine Casts (Auto) 38 U Epithel Cells (Auto) 4.7 Urine Bacteria (Auto) 20.6 Vital Signs (72 hours) 11/26/19 11/27/19 11/27/19 14:43 00:30 03:30 Temperature 97.4 F L Pulse Rate 75 Respiratory 20 18 18 Rate Blood Pressure 103/71 11/27/19 06:51 Temperature 98.2 F Pulse Rate 70 Respiratory 18 Rate Blood Pressure 112/76 Continue rehab.
[2019-11-27] MEDS: guaiFENesin 200 MG/10 ML 10 ML UNIT-DOSE CUPS PO PRN (18:18)
[2019-11-27] MEDS: THIAMINE HCL 100 MG TABLET (FP) PO SCH (22:09)
[2019-11-28] MEDS: VITAMINS A AND D TOPICAL OINTMENT 60 GM TUBE TP SCH ×4 (00:12→17:59)
[2019-11-28] MEDS: guaiFENesin 200 MG/10 ML 10 ML UNIT-DOSE CUPS PO PRN ×2 (04:32→10:47)
[2019-11-28] MEDS: TIOTROPIUM BROMIDE 2.5 MCG (SPIRIVA) RESPIMAT INHALER IH SCH (10:31)
[2019-11-28] MEDS: PRENATAL VITAMINS W/ FOLIC ACID TABLET (FP) PO SCH (10:31)
[2019-11-28] MEDS: ASPIRIN COATED 81 MG TABLET.EC PO SCH (10:31)
[2019-11-28] MEDS: THIAMINE HCL 100 MG TABLET (FP) PO SCH (22:32)
[2019-11-29] MEDS: VITAMINS A AND D TOPICAL OINTMENT 60 GM TUBE TP SCH ×5 (00:41→23:25)
[2019-11-29] MEDS: ASPIRIN COATED 81 MG TABLET.EC PO SCH (09:49)
[2019-11-29] MEDS: PRENATAL VITAMINS W/ FOLIC ACID TABLET (FP) PO SCH (09:49)
[2019-11-29] MEDS: guaiFENesin 200 MG/10 ML 10 ML UNIT-DOSE CUPS PO PRN ×2 (09:49→21:51)
[2019-11-29] MEDS: TIOTROPIUM BROMIDE 2.5 MCG (SPIRIVA) RESPIMAT INHALER IH SCH (09:51)
--- NOTE | 2019-11-29 10:07 | PN ---
[facility] Progress Note Note: Patient seen by provider for request of " blood thinner shot" he was receiving in hospital. Patient's discharge papers from [facility] reviewed. Patient was treated for Pneumonia and PMH of COPD, tobacco use and alcohol/cocaine dependence. Patient was NOT discharged on injectable blood thinners (Heparin/ Lovenox). Likely received as in patient for DVT prophylaxis. Patient denies hx of any cancer. Patient noted to be agitated towards staff during conversation but not physically aggressive. Vital Signs Temperature 97.6 F 11/29/19 07:19 Pulse Rate 69 11/29/19 07:19 Respiratory Rate 18 11/29/19 07:19 Blood Pressure 112/72 11/29/19 07:19 O2 Sat by Pulse Oximetry (%) Laboratory Tests 11/27/19 03:52 Urine Color Yellow Urine Appearance Clear Urine pH 6.0 Ur Specific [place] 1.022 Urine Protein Negative Urine Glucose (UA) Negative Urine Ketones Negative Urine Blood Negative Urine Nitrite Negative Urine Bilirubin Negative Urine Urobilinogen 0.2 Ur Leukocyte Esterase Trace Urine WBC (Auto) 2 Urine RBC (Auto) 0 Urine Casts (Auto) 38 U Epithel Cells (Auto) 4.7 Urine Bacteria (Auto) 20.6 alert and oriented x 3 in nad skin warm and dry ext full rom, amb ad kellie no tremors +agitation A/P: alcohol/cocaine dependence s/p pneumonia treatment Patient to continue asa 81mg daily continue rehab services and supportive measures
[2019-11-29] MEDS: THIAMINE HCL 100 MG TABLET (FP) PO SCH (21:50)
[2019-11-30] MEDS: VITAMINS A AND D TOPICAL OINTMENT 60 GM TUBE TP SCH ×4 (06:06→23:20)
[2019-11-30] MEDS: PRENATAL VITAMINS W/ FOLIC ACID TABLET (FP) PO SCH (10:59)
[2019-11-30] MEDS: ASPIRIN COATED 81 MG TABLET.EC PO SCH (10:59)
[2019-11-30] MEDS: TIOTROPIUM BROMIDE 2.5 MCG (SPIRIVA) RESPIMAT INHALER IH SCH (10:59)
[2019-11-30] MEDS: guaiFENesin 200 MG/10 ML 10 ML UNIT-DOSE CUPS PO PRN (16:35)
[2019-11-30] MEDS: THIAMINE HCL 100 MG TABLET (FP) PO SCH (22:24)
[2019-12-01] MEDS: VITAMINS A AND D TOPICAL OINTMENT 60 GM TUBE TP SCH ×4 (06:07→23:11)
[2019-12-01] MEDS: ASPIRIN COATED 81 MG TABLET.EC PO SCH (10:08)
[2019-12-01] MEDS: TIOTROPIUM BROMIDE 2.5 MCG (SPIRIVA) RESPIMAT INHALER IH SCH (10:08)
[2019-12-01] MEDS: PRENATAL VITAMINS W/ FOLIC ACID TABLET (FP) PO SCH (10:08)
[2019-12-01] MEDS: guaiFENesin 200 MG/10 ML 10 ML UNIT-DOSE CUPS PO PRN ×2 (15:15→21:47)
[2019-12-01] MEDS: THIAMINE HCL 100 MG TABLET (FP) PO SCH (21:47)
[2019-12-02] MEDS: VITAMINS A AND D TOPICAL OINTMENT 60 GM TUBE TP SCH ×4 (06:23→23:41)
[2019-12-02] MEDS: ASPIRIN COATED 81 MG TABLET.EC PO SCH (10:58)
[2019-12-02] MEDS: PRENATAL VITAMINS W/ FOLIC ACID TABLET (FP) PO SCH (10:58)
[2019-12-02] MEDS: TIOTROPIUM BROMIDE 2.5 MCG (SPIRIVA) RESPIMAT INHALER IH SCH (10:59)
[2019-12-02] MEDS: guaiFENesin 200 MG/10 ML 10 ML UNIT-DOSE CUPS PO PRN (11:03)
[2019-12-02] MEDS: THIAMINE HCL 100 MG TABLET (FP) PO SCH (21:28)
[2019-12-03] MEDS: guaiFENesin 200 MG/10 ML 10 ML UNIT-DOSE CUPS PO PRN ×3 (06:03→21:43)
[2019-12-03] MEDS: VITAMINS A AND D TOPICAL OINTMENT 60 GM TUBE TP SCH ×4 (06:23→23:42)
[2019-12-03] MEDS: TIOTROPIUM BROMIDE 2.5 MCG (SPIRIVA) RESPIMAT INHALER IH SCH (10:02)
[2019-12-03] MEDS: ASPIRIN COATED 81 MG TABLET.EC PO SCH (11:20)
[2019-12-03] MEDS: PRENATAL VITAMINS W/ FOLIC ACID TABLET (FP) PO SCH (11:20)
[2019-12-03] MEDS: THIAMINE HCL 100 MG TABLET (FP) PO SCH (21:43)
[2019-12-04] MEDS: VITAMINS A AND D TOPICAL OINTMENT 60 GM TUBE TP SCH (06:05)
[2019-12-04] MEDS ORDERED: VITAMINS A AND D TOPICAL OINTMENT 60 GM TUBE TP PRN (09:16)
[2019-12-04] MEDS: PRENATAL VITAMINS W/ FOLIC ACID TABLET (FP) PO SCH (10:16)
[2019-12-04] MEDS: ASPIRIN COATED 81 MG TABLET.EC PO SCH (10:17)
[2019-12-04] MEDS: TIOTROPIUM BROMIDE 2.5 MCG (SPIRIVA) RESPIMAT INHALER IH SCH (10:17)
[2019-12-04] MEDS: guaiFENesin 200 MG/10 ML 10 ML UNIT-DOSE CUPS PO PRN ×2 (10:18→21:35)
[2019-12-04] MEDS ORDERED: TETRAHYDROZOLINE HCL EYE DROPS OU PRN (11:05)
--- NOTE | 2019-12-04 11:10 | PN ---
[facility] Progress Note Note: Vital Signs Temperature 98 F 12/04/19 06:13 Pulse Rate 64 12/04/19 06:13 Respiratory Rate 18 12/04/19 06:13 Blood Pressure 112/74 12/04/19 06:13 O2 Sat by Pulse Oximetry (%) Laboratory Last Values Urine Color Yellow 11/27/19 03:52 Urine Appearance Clear 11/27/19 03:52 Urine pH 6.0 (5.0-8.0) 11/27/19 03:52 Ur Specific [place] 1.022 (1.010-1.035) 11/27/19 03:52 Urine Protein Negative (NEGATIVE) 11/27/19 03:52 Urine Glucose (UA) Negative (NEGATIVE) 11/27/19 03:52 Urine Ketones Negative (NEGATIVE) 11/27/19 03:52 Urine Blood Negative (NEGATIVE) 11/27/19 03:52 Urine Nitrite Negative (NEGATIVE) 11/27/19 03:52 Urine Bilirubin Negative (NEGATIVE) 11/27/19 03:52 Urine Urobilinogen 0.2 mg/dL (0.2-1.0) 11/27/19 03:52 Ur Leukocyte Esterase Trace (NEGATIVE) 11/27/19 03:52 Urine WBC (Auto) 2 /hpf (0-5) 11/27/19 03:52 Urine RBC (Auto) 0 /hpf (0-4) 11/27/19 03:52 Urine Casts (Auto) 38 /lpf (0-8) 11/27/19 03:52 U Epithel Cells (Auto) 4.7 /HPF (0-5/HPF) 11/27/19 03:52 Urine Bacteria (Auto) 20.6 /hpf (NEGATIVE) 11/27/19 03:52 Patient c/o of mild blood streak sputum, unable to demonstrate at this time, reports prior to admission was admitted for one and half week at the hospital and treated for pneumonia. Also c/o of drys eyes. Denies any pain at this time, dizziness or SOB. Patient AOx3 no acute distress EENT WNL lungs clear through out, no adventitious breath sounds full ROM no gait disturbance skin intact no edema, echymosis or erythema, + b/l mild varicose vein LLE dry eyes routine CBC and CMP ordered vasine prn for dry eyes patient reports takes daily chewable aspirin, no coated aspirin, ordered updated , d/c ibuprofen continue to monitor
[2019-12-04] MEDS: THIAMINE HCL 100 MG TABLET (FP) PO SCH (21:34)
[2019-12-05] MEDS ORDERED: SELENIUM SULFIDE 2.25% 180 ML SHAMPOO TP SCH (10:00)
[2019-12-05] MEDS: PRENATAL VITAMINS W/ FOLIC ACID TABLET (FP) PO SCH (10:09)
[2019-12-05] MEDS: ASPIRIN 81 MG CHEWABLE TABLETS PO SCH (10:09)
[2019-12-05] MEDS: TIOTROPIUM BROMIDE 2.5 MCG (SPIRIVA) RESPIMAT INHALER IH SCH (10:10)
[2019-12-05] MEDS: guaiFENesin 200 MG/10 ML 10 ML UNIT-DOSE CUPS PO PRN ×2 (10:11→21:19)
[2019-12-05 14:08] LABS: HEMATOCRIT 42.7 % (35.4-49); MCH 30.2 pg (25.7-33.7); MCHC 32.8 g/dl (32.0-35.9); MEAN CELL VOLUME 91.9 fl (80-96); PLATELET COUNT 342 K/MM3 (134-434); RBC 4.64 M/mm3 (4.00-5.60); RDW 16.1 % (11.9-15.9); WHITE BLOOD COUNT 5.6 K/mm3 (4.0-10.0)
[2019-12-05 14:25] LABS: ALBUMIN 3.3 g/dl (3.4-5.0); BILIRUBIN,TOTAL 0.3 mg/dL (0.2-1); BLOOD UREA NITROGEN 22.4 mg/dL (7-18); CALCIUM 8.5 mg/dL (8.5-10.1); CREATININE 0.9 mg/dL (0.55-1.3); POTASSIUM 4.2 mmol/L (3.5-5.1); TOT PROT 6.2 g/dl (6.4-8.2)
--- NOTE | 2019-12-05 15:21 | DS ---
[facility] Rehab Discharge Summary - [facility] Rehab Discharge Summary Admission Date: 11/26/19 Discharge Date: 12/06/19 - History Present History: Alcohol dependence, Cannabis dependence, Cocaine dependence Additional Comments: Pt is a 74 y/o male with a hx of EDMUNDO-alcohol,cocaine and marijuana admitted to rehab and scheduled for discharge on 12/06/19. Pt reports he has no primary care provider and goes to the ER for medical care(It don't matter,depends on where i' m at"). Pt reports he goes to the [facility]. States he stays on the streets and does not want to go to any CD program. Pertinent Past History: Asthma CAD S/P AL Ulcer on both feet - Discharge Physical Exam Vital Signs: Vital Signs Temperature 98.3 F 12/05/19 07:01 Pulse Rate 61 12/05/19 07:01 Respiratory Rate 18 12/05/19 07:01 Blood Pressure 120/75 12/05/19 07:01 O2 Sat by Pulse Oximetry (%) Alert o x 3 nad oob ambulating with steady gait cardiac: lungs: abdomen: extremities/skin:no edema,extremely dry, thick scaly skin on soles of feet. A/P Dry skin Dermatitis Tinea Pedis Pertinent Admission Physical Exam Findings: Chronic Dry skin - Treatment Discharge Condition: Discharge condition good Hospital Course: Rehabilitated safely - Medication Discharge Medications: Ambulatory Orders Aspirin [Adult Aspirin Regimen] 81 mg PO DAILY #30 tablet. 12/13/18 Albuterol Sulfate Inhaler - [Ventolin HFA Inhaler -] 2 puff IH Q4H PRN #1 inhaler 07/08/19 Azithromycin 250 mg PO ASDIR 11/26/19 Fluticasone Propionate [Flovent Hfa] 220 mcg IH BID 11/26/19 Prednisone [Prednisone 50 MG TABLETS] 50 mg PO ONCE 11/26/19 Thiamine HCl [B-1] 100 mg PO DAILY 11/26/19 Tiotropium [place] [Spiriva] 1 inh PO DAILY 11/26/19 Aspirin [ASA -] 81 mg PO DAILY #30 tab.radha 12/05/19 - Medication-Assisted Treatment (MAT) Medication-Assisted Treatment (MAT): No - Discharge Instructions Diet, activity, other medical instructions: Diet:LIZABETH Activity: oob ad kellie Other medical instructions:d/w pt to follow up with primary care at a location near him as discussed. - Diagnosis (1) Alcohol dependence Status: Chronic Qualifiers: Substance use status: uncomplicated Qualified Code(s): F10.20 - Alcohol dependence, uncomplicated (2) Cannabis dependence Status: Chronic (3) Cocaine dependence Status: Chronic Qualifiers: Substance use status: uncomplicated Qualified Code(s): F14.20 - Cocaine dependence, uncomplicated (4) Nicotine dependence Status: Chronic Qualifiers: Nicotine product type: cigarettes Substance use status: uncomplicated Qualified Code(s): F17.210 - Nicotine dependence, cigarettes, uncomplicated (5) Arthritis Status: Chronic (6) Asthma Status: Chronic Qualifiers: Asthma severity: mild Asthma persistence: intermittent Asthma complication type: with status asthmaticus Qualified Code(s): J45.22 - Mild intermittent asthma with status asthmaticus (7) CAD (coronary artery disease) Status: Chronic Qualifiers: Coronary Disease-Associated Artery/Lesion type: unspecified vessel or lesion type [place] vs. 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
[2019-12-05] MEDS: THIAMINE HCL 100 MG TABLET (FP) PO SCH (21:18)
[2019-12-06 06:41] VITALS: BP 113/76; PULSE 73; TEMP 97.7
[2019-12-06] MEDS: TIOTROPIUM BROMIDE 2.5 MCG (SPIRIVA) RESPIMAT INHALER IH SCH (09:10)
[2019-12-06] MEDS: PRENATAL VITAMINS W/ FOLIC ACID TABLET (FP) PO SCH (09:10)
[2019-12-06] MEDS: ASPIRIN 81 MG CHEWABLE TABLETS PO SCH (09:10)
== END 2019-12-06 09:50 | disposition home or self-care (01) | DRG 895 ==
LOC: YASAS 12:53 → Y3W 15:55
PROVIDERS: ADMIT Neuromusculoskeletal Medicine & OMM; ATTEND Neuromusculoskeletal Medicine & OMM
PROC: HZ42ZZZ Group Counseling for Substance Abuse Treatment, Cognitive-Behavioral (ICD-10-PCS; principal; 2019-11-26)
DX: F10.20 Alcohol dependence, uncomplicated (principal); F14.20 Cocaine dependence, uncomplicated; J45.22 Mild intermittent asthma with status asthmaticus; Z68.1 Body mass index [BMI] 19.9 or less, adult; F12.20 Cannabis dependence, uncomplicated; F17.210 Nicotine dependence, cigarettes, uncomplicated; I25.10 Atherosclerotic heart disease of native coronary artery without angina pectoris; I25.2 Old myocardial infarction; I51.7 Cardiomegaly; L85.3 Xerosis cutis; B35.3 Tinea pedis; L97.509 Non-pressure chronic ulcer of other part of unspecified foot with unspecified severity; M12.9 Arthropathy, unspecified; M1A.0790 Idiopathic chronic gout, unspecified ankle and foot, without tophus (tophi); Z87.01 Personal history of pneumonia (recurrent); R63.4 Abnormal weight loss
CPT/HCPCS: 36415; 71046-TC-FY; 80053; 81003; 85027

== ENCOUNTER 2020-01-15 10:26 | Inpatient (IN) | payer BC, OTHER ==
[2020-01-15 11:22] VITALS: BMI 20.3
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
[2020-01-15] MEDS ORDERED: MAG HYDROX/AL HYDROX/SIMETH 30 ML UNIT-DOSE CUP PO PRN (11:49)
[2020-01-15] MEDS ORDERED: LORazepam 1 MG TABLET PO PRN (11:49)
[2020-01-15] MEDS ORDERED: MAGNESIUM CITRATE 300 ML BOTTLE PO PRN (11:49)
[2020-01-15] MEDS ORDERED: MAGNESIUM HYDROX 2400MG/30ML ORAL SUSPENSION 30 ML CUP PO PRN (11:49)
[2020-01-15] MEDS ORDERED: IBUPROFEN 400 MG TABLET (FP) PO PRN (11:49)
[2020-01-15] MEDS ORDERED: BISMUTH SUBSALICYLATE 262 MG/15 ML BTL PO PRN (11:49)
[2020-01-15] MEDS ORDERED: hydrOXYzine PAMOATE 25 MG CAPSULE (FP) PO PRN (11:49)
[2020-01-15] MEDS ORDERED: METHOCARBAMOL 500 MG TABLET PO PRN (11:49)
[2020-01-15] MEDS ORDERED: ACETAMINOPHEN 325 MG TABLET (FP) PO PRN ×2 (11:49)
[2020-01-15] MEDS ORDERED: MELATONIN 5 MG TABLETS PO PRN (11:49)
[2020-01-15] MEDS ORDERED: ALBUTEROL SO4 HFA INHALER IH PRN (11:51)
[2020-01-15] MEDS: ASPIRIN 81 MG CHEWABLE TABLETS PO SCH (13:46)
[2020-01-15] MEDS: LORazepam 2 MG TABLET PO SCH ×3 (13:46→23:54)
[2020-01-15] MEDS: NICOTINE 7 MG/24 HOURS TOPICAL PATCH TD SCH (13:47)
--- NOTE | 2020-01-15 15:41 | EKG ---
Test Reason : Blood Pressure : / mmHG Vent. Rate : 060 BPM Atrial Rate : 060 BPM P-R Int : 146 ms QRS Dur : 098 ms QT Int : 454 ms P-R-T Axes : 072 068 070 degrees QTc Int : 454 ms NORMAL SINUS RHYTHM LEFT ATRIAL ENLARGEMENT LEFT VENTRICULAR HYPERTROPHY WITH REPOLARIZATION ABNORMALITY ABNORMAL ECG Confirmed by MD ANAM, KELLY ([id number]) on 01/15/2020 3:40:50 PM Referred By: Confirmed By:KELLY MENDIETA MD
[2020-01-15] MEDS: THIAMINE HCL 100 MG TABLET (FP) PO SCH (23:54)
[2020-01-16] MEDS: LORazepam 2 MG TABLET PO SCH ×4 (08:12→23:09)
[2020-01-16 09:45] LABS: HEMATOCRIT 40.3 % (35.4-49); HEMOGLOBIN 13.5 GM/dL (11.7-16.9); MCH 30.5 pg (25.7-33.7); MCHC 33.5 g/dl (32.0-35.9); MEAN CELL VOLUME 91.2 fl (80-96); MEAN PLT VOLUME 7.9 fl (7.5-11.1); PLATELET COUNT 300 K/MM3 (134-434); RBC 4.42 M/mm3 (4.00-5.60); RDW 16.1 % (11.9-15.9); WHITE BLOOD COUNT 3.5 K/mm3 (4.0-10.0)
[2020-01-16 10:13] LABS: ALBUMIN 3.2 g/dl (3.4-5.0); BILIRUBIN,TOTAL 0.5 mg/dL (0.2-1); BLOOD UREA NITROGEN 15.4 mg/dL (7-18); CALCIUM 8.2 mg/dL (8.5-10.1); POTASSIUM 4.2 mmol/L (3.5-5.1)
--- NOTE | 2020-01-16 10:40 | PN ---
S CIWA - CIWA Score Nausea/Vomitin Muscle Tremors: 2 Anxiety: 2 Agitation: 2 Paroxysmal Sweats: No Perspiration Orientation: 0-Oriented Tacttile Disturbances: 1-Very Mild Itch/Numbness Auditory Disturbances: 0-None Visual Disturbances: 0-None Headache: 1-Very Mild CIWA-Ar Total Score: 10 S Progress Note (SOAP) Subjective: alert,irritable,anxious,interrupted sleep,tremor Objective: 01/16/20 10:37 Vital Signs Temperature 98.1 F 01/16/20 09:00 Pulse Rate 77 01/16/20 09:00 Respiratory Rate 16 01/16/20 09:00 Blood Pressure 118/70 01/16/20 09:00 O2 Sat by Pulse Oximetry (%) 01/16/20 10:38 Laboratory Last Values WBC 3.5 K/mm3 (4.0-10.0) L 01/16/20 07:30 RBC 4.42 M/mm3 (4.00-5.60) 01/16/20 07:30 Hgb 13.5 GM/dL (11.7-16.9) 01/16/20 07:30 Hct 40.3 % (35.4-49) 01/16/20 07:30 MCV 91.2 fl (80-96) 01/16/20 07:30 MCH 30.5 pg (25.7-33.7) 01/16/20 07:30 MCHC 33.5 g/dl (32.0-35.9) 01/16/20 07:30 RDW 16.1 % (11.9-15.9) H 01/16/20 07:30 Plt Count 300 K/MM3 (134-434) 01/16/20 07:30 MPV 7.9 fl (7.5-11.1) 01/16/20 07:30 Sodium 140 mmol/L (136-145) 01/16/20 07:30 Potassium 4.2 mmol/L (3.5-5.1) 01/16/20 07:30 Chloride 108 mmol/L (98-107) H 01/16/20 07:30 Carbon Dioxide 29 mmol/L (21-32) 01/16/20 07:30 Anion Gap 4 MMOL/L (8-16) L 01/16/20 07:30 BUN 15.4 mg/dL (7-18) 01/16/20 07:30 Creatinine 1.0 mg/dL (0.55-1.3) 01/16/20 07:30 Est GFR (CKD-EPI)AfAm 86.76 01/16/20 07:30 Est GFR (CKD-EPI)NonAf 74.86 01/16/20 07:30 Random Glucose 82 mg/dL (74-106) 01/16/20 07:30 Calcium 8.2 mg/dL (8.5-10.1) L 01/16/20 07:30 Total Bilirubin 0.5 mg/dL (0.2-1) 01/16/20 07:30 AST 15 U/L (15-37) 01/16/20 07:30 ALT 21 U/L (13-61) 01/16/20 07:30 Alkaline Phosphatase 81 U/L (45-117) 01/16/20 07:30 Total Protein 6.0 g/dl (6.4-8.2) L 01/16/20 07:30 Albumin 3.2 g/dl (3.4-5.0) L 01/16/20 07:30 Assessment: 01/16/20 10:38 withdrawal symptom Plan: continue detox ativan regimen,ensure plus 120 mls po tid with each meal
[2020-01-16] MEDS: ASPIRIN 81 MG CHEWABLE TABLETS PO SCH (11:04)
[2020-01-16] MEDS: PRENATAL VITAMINS W/ FOLIC ACID TABLET (FP) PO SCH (11:05)
[2020-01-16] MEDS: NICOTINE 7 MG/24 HOURS TOPICAL PATCH TD SCH (11:05)
[2020-01-16] MEDS: THIAMINE HCL 100 MG TABLET (FP) PO SCH (23:10)
[2020-01-17] MEDS: LORazepam 1 MG TABLET PO SCH ×4 (06:19→22:47)
--- NOTE | 2020-01-17 09:22 | PN ---
[facility] CIWA - CIWA Score Nausea/Vomitin-Mild Nausea/No Vomiting Muscle Tremors: 1-None Visible, but [place] Anxiety: 2 Agitation: 2 Paroxysmal Sweats: No Perspiration Orientation: 0-Oriented Tacttile Disturbances: 1-Very Mild Itch/Numbness Auditory Disturbances: 0-None Visual Disturbances: 0-None Headache: 1-Very Mild CIWA-Ar Total Score: 8 BHS Progress Note (SOAP) Subjective: alert,irritable,anxious,interrupted sleep, Objective: 01/17/20 09:21 Vital Signs Temperature 97 F L 01/17/20 06:25 Pulse Rate 69 01/17/20 06:25 Respiratory Rate 16 01/17/20 06:25 Blood Pressure 121/73 01/17/20 06:25 O2 Sat by Pulse Oximetry (%) Assessment: 01/17/20 09:21 withdrawal symptom Plan: continue detox ativan regimen
[2020-01-17] MEDS: ASPIRIN 81 MG CHEWABLE TABLETS PO SCH (10:40)
[2020-01-17] MEDS: PRENATAL VITAMINS W/ FOLIC ACID TABLET (FP) PO SCH (10:40)
[2020-01-17] MEDS: NICOTINE 7 MG/24 HOURS TOPICAL PATCH TD SCH (10:40)
[2020-01-17] MEDS: VITAMINS A AND D TOPICAL OINTMENT 60 GM TUBE TP SCH ×2 (13:05→18:48)
[2020-01-17] MEDS: MENTHOL/PHENOL 1 EACH UD MM PRN (20:49)
[2020-01-17] MEDS: THIAMINE HCL 100 MG TABLET (FP) PO SCH (22:47)
[2020-01-18] MEDS ORDERED: LORazepam 0.5 MG TABLET PO PRN
[2020-01-18] MEDS: VITAMINS A AND D TOPICAL OINTMENT 60 GM TUBE TP SCH ×3 (00:36→13:00)
[2020-01-18] MEDS: MENTHOL/PHENOL 1 EACH UD MM PRN ×2 (00:37→06:14)
[2020-01-18] MEDS: LORazepam 0.5 MG TABLET PO SCH ×3 (06:10→17:29)
[2020-01-18] MEDS: PRENATAL VITAMINS W/ FOLIC ACID TABLET (FP) PO SCH (11:03)
[2020-01-18] MEDS: ASPIRIN 81 MG CHEWABLE TABLETS PO SCH (11:03)
[2020-01-18] MEDS: NICOTINE 7 MG/24 HOURS TOPICAL PATCH TD SCH (11:04)
[2020-01-18] MEDS: guaiFENesin 200 MG/10 ML 10 ML UNIT-DOSE CUPS PO PRN (15:12)
--- NOTE | 2020-01-18 15:41 | PN ---
S CIWA - CIWA Score Nausea/Vomitin-Mild Nausea/No Vomiting Muscle Tremors: 2 Anxiety: 3 Agitation: 1-Slight > Activity Paroxysmal Sweats: No Perspiration Orientation: 0-Oriented Tacttile Disturbances: 0-None Auditory Disturbances: 0-None Visual Disturbances: 1-Very Mild Sensitivity Headache: 0-None Present CIWA-Ar Total Score: 8 BHS Progress Note (SOAP) Subjective: Tremors, Anxious, Fatigue. Objective: PATIENT A & O X 3, OBSERVED AMBULATING ON DETOX UNIT UNASSISTED. IN NO ACUTE DISTRESS. 01/18/20 15:41 Vital Signs Temperature 98.2 F 01/18/20 09:05 Pulse Rate 86 01/18/20 09:05 Respiratory Rate 18 01/18/20 09:05 Blood Pressure 107/59 L 01/18/20 09:05 O2 Sat by Pulse Oximetry (%) Laboratory Tests 01/16/20 01/16/20 01/16/20 07:30 07:30 07:30 WBC 3.5 L RBC 4.42 Hgb 13.5 Hct 40.3 MCV 91.2 MCH 30.5 MCHC 33.5 RDW 16.1 H Plt Count 300 MPV 7.9 Sodium 140 Potassium 4.2 Chloride 108 H Carbon Dioxide 29 Anion Gap 4 L BUN 15.4 Creatinine 1.0 Est GFR (CKD-EPI)AfAm 86.76 Est GFR (CKD-EPI)NonAf 74.86 Random Glucose 82 Calcium 8.2 L Total Bilirubin 0.5 AST 15 ALT 21 Alkaline Phosphatase 81 Total Protein 6.0 L Albumin 3.2 L RPR Titer Nonreactive LABS NOTED. Assessment: 01/18/20 15:42 WITHDRAWAL SYMPTOMS. LEUKOPENIA. Plan: CONTINUE DETOX. INCREASE DAILY ORAL WATER INTAKE.
[2020-01-18] MEDS: ALBUTEROL SO4 2.5/IPRATROPIUM 0.5 INH SOL 3 ML VIAL.NEB. NEB PRN (17:06)
[2020-01-19] MEDS: THIAMINE HCL 100 MG TABLET (FP) PO SCH ×2 (00:31→22:33)
[2020-01-19] MEDS: VITAMINS A AND D TOPICAL OINTMENT 60 GM TUBE TP SCH ×5 (00:31→18:33)
[2020-01-19] MEDS: LORazepam 0.5 MG TABLET PO SCH (00:32)
[2020-01-19] MEDS: guaiFENesin 200 MG/10 ML 10 ML UNIT-DOSE CUPS PO PRN ×2 (04:09→10:57)
[2020-01-19] MEDS: ALBUTEROL SO4 2.5/IPRATROPIUM 0.5 INH SOL 3 ML VIAL.NEB. NEB PRN (04:09)
[2020-01-19] MEDS ORDERED: LORazepam 0.5 MG TABLET PO ONE (05:00)
[2020-01-19] MEDS: PRENATAL VITAMINS W/ FOLIC ACID TABLET (FP) PO SCH (10:57)
[2020-01-19] MEDS: ASPIRIN 81 MG CHEWABLE TABLETS PO SCH (10:57)
[2020-01-19] MEDS: NICOTINE 7 MG/24 HOURS TOPICAL PATCH TD SCH (11:00)
--- NOTE | 2020-01-19 14:16 | PN ---
S CIWA - CIWA Score Nausea/Vomitin-No Nausea/No Vomiting Muscle Tremors: None Anxiety: 2 Agitation: 2 Paroxysmal Sweats: 2 Orientation: 0-Oriented Tacttile Disturbances: 0-None Auditory Disturbances: 0-None Visual Disturbances: 0-None Headache: 0-None Present CIWA-Ar Total Score: 6 BHS Progress Note (SOAP) Subjective: Anxious, sweating, interrupted sleep, muscle ache. Patient requesting to be discharged tomorrow instead of today due to withdrawal sxs. Objective: 01/19/20 14:13 Last Vital Signs Temp Pulse Resp BP Pulse Ox 97.9 F 67 16 112/65 01/19/20 12:46 01/19/20 12:46 01/19/20 12:46 01/19/20 12:46 Laboratory Tests 01/16/20 01/16/20 01/16/20 07:30 07:30 07:30 WBC 3.5 L RBC 4.42 Hgb 13.5 Hct 40.3 MCV 91.2 MCH 30.5 MCHC 33.5 RDW 16.1 H Plt Count 300 MPV 7.9 Sodium 140 Potassium 4.2 Chloride 108 H Carbon Dioxide 29 Anion Gap 4 L BUN 15.4 Creatinine 1.0 Est GFR (CKD-EPI)AfAm 86.76 Est GFR (CKD-EPI)NonAf 74.86 Random Glucose 82 Calcium 8.2 L Total Bilirubin 0.5 AST 15 ALT 21 Alkaline Phosphatase 81 Total Protein 6.0 L Albumin 3.2 L RPR Titer Nonreactive Labs reviewed: calcium 8.2 (low) Assessment: 01/19/20 14:15 Withdrawal sxs Noted with hypocalcemia Plan: Continue detox Encouraged PO water intake Discharge changed to tomorrow due to increased withdrawal sxs Patient requesting inpatient rehab Hypocalcemia: start calcium carbonate 650mg PO bid
[2020-01-19] MEDS: CALCIUM CARBONATE 650 MG TABLET PO SCH ×2 (15:30→22:32)
[2020-01-20] MEDS: VITAMINS A AND D TOPICAL OINTMENT 60 GM TUBE TP SCH ×2 (01:14→05:18)
[2020-01-20] MEDS: CALCIUM CARBONATE 650 MG TABLET PO SCH (09:36)
[2020-01-20] MEDS: ASPIRIN 81 MG CHEWABLE TABLETS PO SCH (09:36)
[2020-01-20] MEDS: PRENATAL VITAMINS W/ FOLIC ACID TABLET (FP) PO SCH (09:36)
[2020-01-20] MEDS: NICOTINE 7 MG/24 HOURS TOPICAL PATCH TD SCH (09:37)
[2020-01-20 09:50] VITALS: BP 119/57; PULSE 69; TEMP 98.1
--- NOTE | 2020-01-20 10:10 | PN ---
[facility] CIWA - CIWA Score Nausea/Vomitin-No Nausea/No Vomiting Muscle Tremors: 1-None Visible, but [place] Anxiety: 0-No Anxiety, at Ease Agitation: 0-Normal Activity Paroxysmal Sweats: No Perspiration Orientation: 0-Oriented Tacttile Disturbances: 0-None Auditory Disturbances: 0-None Visual Disturbances: 0-None Headache: 0-None Present CIWA-Ar Total Score: 1 S Progress Note (SOAP) Subjective: alert,oriented x3,no complaint Objective: 01/20/20 10:09 Vital Signs Temperature 98.1 F 01/20/20 09:13 Pulse Rate 69 01/20/20 09:13 Respiratory Rate 16 01/20/20 09:13 Blood Pressure 119/57 L 01/20/20 09:13 O2 Sat by Pulse Oximetry (%) Assessment: 01/20/20 10:09 detox completed,no withdrawal symptom Plan: discharge today,follow up with after care program as arrangement
--- NOTE | 2020-01-20 10:11 | DS ---
[facility] Detox Discharge Summary Admission Date: 01/15/20 Discharge Date: 01/20/20 - History Present History: Alcohol Dependence Additional Comments: alert,oriented x 3 ambulation on the unit heart normal heart sound,s1,s2 lung clear,no wheezing bilaterally abdomen soft,no distension,no pain extremities no swelling no calf tenderness no chest pain,no sob,no dizziness stable for discharge discharge time spending 35 mins patient will go to [facility] in am for rehab arrngement by counselor Pertinent Past History: asthma copd cad - Physical Exam Results Vital Signs: Vital Signs Temperature 98.1 F 01/20/20 09:13 Pulse Rate 69 01/20/20 09:13 Respiratory Rate 16 01/20/20 09:13 Blood Pressure 119/57 L 01/20/20 09:13 O2 Sat by Pulse Oximetry (%) Pertinent Admission Physical Exam Findings: withdrawal signs and symptom - Treatment Hospital Course: Detox Protocol Followed, Detoxed Safely, Responded well, Discharged Condition Good - Medication Discharge Medications: Ambulatory Orders Aspirin [ASA -] 81 mg PO DAILY #30 tab.chew 12/05/19 Albuterol Sulfate Inhaler - [Ventolin HFA Inhaler -] 2 puff IH Q4H PRN #1 inhaler 01/18/20 - Diagnosis (1) Alcohol dependence with withdrawal, uncomplicated Current Visit: Yes Status: Acute (2) CAD (coronary artery disease) Current Visit: Yes Status: Chronic Qualifiers: Coronary Disease-Associated Artery/Lesion type: unspecified vessel or lesion type [place] vs. transplanted heart: [place] heart Associated angina: angina presence unspecified Qualified Code(s): I25.10 - Atherosclerotic heart disease of [place] coronary artery without angina pectoris (3) Old IN (myocardial infarction) Current Visit: No Status: Acute (4) Asthma Current Visit: No Status: Chronic Qualifiers: Asthma severity: mild Asthma persistence: intermittent Asthma complication type: with status asthmaticus Qualified Code(s): J45.22 - Mild intermittent asthma with status asthmaticus - AMA Did Patient Leave Against Medical Advice: No
== END 2020-01-20 12:52 | disposition home or self-care (01) | DRG 897 ==
LOC: YASAS 10:26 → Y6N 12:20
PROVIDERS: ADMIT Allergy & Immunology; ATTEND Allergy & Immunology
PROC: HZ2ZZZZ Detoxification Services for Substance Abuse Treatment (ICD-10-PCS; principal; 2020-01-15)
DX: F10.230 Alcohol dependence with withdrawal, uncomplicated (principal); J45.22 Mild intermittent asthma with status asthmaticus; F17.210 Nicotine dependence, cigarettes, uncomplicated; F20.9 Schizophrenia, unspecified; F32.9 Major depressive disorder, single episode, unspecified; D72.819 Decreased white blood cell count, unspecified; I25.10 Atherosclerotic heart disease of native coronary artery without angina pectoris; I25.2 Old myocardial infarction; I50.9 Heart failure, unspecified; J44.9 Chronic obstructive pulmonary disease, unspecified; L85.3 Xerosis cutis; E83.51 Hypocalcemia; J20.9 Acute bronchitis, unspecified; Z87.01 Personal history of pneumonia (recurrent)
CPT/HCPCS: 36415; 80053; 85027; 86593; 93005; 93010; 94640

== ENCOUNTER 2021-08-11 13:52 | Inpatient (IN) | payer BC, OTHER ==
[2021-08-11 17:23] VITALS: BMI 19.5
[2021-08-11] MEDS ORDERED: ACETAMINOPHEN 325 MG TABLET (FP) PO PRN ×2 (17:34)
[2021-08-11] MEDS ORDERED: BISMUTH SUBSALICYLATE 524 MG/30 ML PO PRN (17:34)
[2021-08-11] MEDS ORDERED: ONDANSETRON *ODT* 4 MG TABLET SL PRN (17:34)
[2021-08-11] MEDS ORDERED: METHOCARBAMOL 500 MG TABLET PO PRN (17:34)
[2021-08-11] MEDS ORDERED: IBUPROFEN 400 MG TABLET (FP) PO PRN (17:34)
[2021-08-11] MEDS ORDERED: MAG HYDROX/AL HYDROX/SIMETH 30 ML UNIT-DOSE CUP PO PRN (17:34)
[2021-08-11] MEDS ORDERED: MAGNESIUM CITRATE 300 ML BOTTLE PO PRN (17:34)
[2021-08-11] MEDS ORDERED: NICOTINE 10 MG CARTRIDGE (INHALER) IH PRN (17:34)
[2021-08-11] MEDS ORDERED: MENTHOL/PHENOL 1 EACH UD MM PRN (17:34)
[2021-08-11] MEDS ORDERED: MAGNESIUM HYDROX 2400MG/30ML ORAL SUSPENSION 30 ML CUP PO PRN (17:34)
[2021-08-11] MEDS ORDERED: hydrOXYzine PAMOATE 25 MG CAPSULE (FP) PO PRN (17:34)
[2021-08-11] MEDS: MELATONIN 5 MG TABLETS PO SCH (23:13)
[2021-08-11] MEDS: THIAMINE HCL 100 MG TABLET (FP) PO SCH (23:13)
[2021-08-12] MEDS ORDERED: ALBUTEROL SO4 HFA INHALER IH PRN (07:49)
[2021-08-12] MEDS ORDERED: diazePAM 5 MG TABLET PO PRN (09:20)
[2021-08-12] MEDS: ASPIRIN 81 MG CHEWABLE TABLETS PO SCH (10:36)
[2021-08-12] MEDS: PRENATAL VITAMINS W/ FOLIC ACID TABLET (FP) PO SCH (10:36)
[2021-08-12] MEDS: diazePAM 5 MG TABLET PO SCH ×3 (10:37→22:31)
[2021-08-12] MEDS: THIAMINE HCL 100 MG TABLET (FP) PO SCH (22:31)
[2021-08-12] MEDS: MELATONIN 5 MG TABLETS PO SCH (22:31)
[2021-08-13] MEDS: diazePAM 5 MG TABLET PO SCH ×4 (06:50→23:13)
[2021-08-13] MEDS: PRENATAL VITAMINS W/ FOLIC ACID TABLET (FP) PO SCH (10:53)
[2021-08-13] MEDS: ASPIRIN 81 MG CHEWABLE TABLETS PO SCH (10:53)
[2021-08-13 13:07] LABS: HEMATOCRIT 44.3 % (35.4-49); HEMOGLOBIN 14.8 GM/dL (11.7-16.9); MCH 31.3 pg (25.7-33.7); MCHC 33.4 g/dl (32.0-35.9); MEAN CELL VOLUME 93.7 fl (80-96); PLATELET COUNT 230 10^3/uL (134-434); RBC 4.73 M/mm3 (4.00-5.60); RDW 15.6 % (11.9-15.9); WHITE BLOOD COUNT 4.4 K/mm3 (4.0-10.0)
[2021-08-13 13:27] LABS: ALBUMIN 3.3 g/dl (3.4-5.0); CALCIUM 8.7 mg/dL (8.5-10.1)
[2021-08-13 13:28] LABS: BLOOD UREA NITROGEN 14.7 mg/dL (7-18)
[2021-08-13 13:32] LABS: BILIRUBIN,TOTAL 0.3 mg/dL (0.2-1); TOT PROT 6.4 g/dl (6.4-8.2)
[2021-08-13] MEDS: THIAMINE HCL 100 MG TABLET (FP) PO SCH (23:13)
[2021-08-13] MEDS: MELATONIN 5 MG TABLETS PO SCH (23:13)
[2021-08-14] MEDS: diazePAM 5 MG TABLET PO SCH ×3 (07:25→23:16)
[2021-08-14] MEDS: PRENATAL VITAMINS W/ FOLIC ACID TABLET (FP) PO SCH (11:05)
[2021-08-14] MEDS: ASPIRIN 81 MG CHEWABLE TABLETS PO SCH (11:05)
[2021-08-14] MEDS: MINERAL OIL/PETROLAT/WATER TOPICAL CREAM 113 GM JAR TP SCH (23:12)
[2021-08-14] MEDS: MELATONIN 5 MG TABLETS PO SCH (23:16)
[2021-08-14] MEDS: THIAMINE HCL 100 MG TABLET (FP) PO SCH (23:17)
[2021-08-15] MEDS: diazePAM 5 MG TABLET PO SCH ×2 (07:23→18:20)
[2021-08-15] MEDS: ASPIRIN 81 MG CHEWABLE TABLETS PO SCH (11:00)
[2021-08-15] MEDS: PRENATAL VITAMINS W/ FOLIC ACID TABLET (FP) PO SCH (11:00)
[2021-08-15] MEDS: MINERAL OIL/PETROLAT/WATER TOPICAL CREAM 113 GM JAR TP SCH ×2 (11:00→22:34)
[2021-08-15] MEDS: THIAMINE HCL 100 MG TABLET (FP) PO SCH (22:34)
[2021-08-15] MEDS: MELATONIN 5 MG TABLETS PO SCH (22:34)
[2021-08-16] MEDS ORDERED: diazePAM 5 MG TABLET PO ONE (06:00)
[2021-08-16 09:42] VITALS: BP 123/81; PULSE 56; TEMP 97.3
[2021-08-16] MEDS: MINERAL OIL/PETROLAT/WATER TOPICAL CREAM 113 GM JAR TP SCH (10:31)
[2021-08-16] MEDS: PRENATAL VITAMINS W/ FOLIC ACID TABLET (FP) PO SCH (10:31)
[2021-08-16] MEDS: ASPIRIN 81 MG CHEWABLE TABLETS PO SCH (10:31)
== END 2021-08-16 14:12 | disposition home or self-care (01) | DRG 897 ==
LOC: YASAS 13:52 → Y3N 18:40 → UNDOADMIN 18:40
PROVIDERS: ADMIT Allergy & Immunology; ATTEND Allergy & Immunology
PROC: HZ2ZZZZ Detoxification Services for Substance Abuse Treatment (ICD-10-PCS; principal; 2021-08-11)
DX: F10.230 Alcohol dependence with withdrawal, uncomplicated (principal); F14.20 Cocaine dependence, uncomplicated; F12.20 Cannabis dependence, uncomplicated; F17.210 Nicotine dependence, cigarettes, uncomplicated; F39 Unspecified mood [affective] disorder; I25.10 Atherosclerotic heart disease of native coronary artery without angina pectoris; I25.2 Old myocardial infarction; J45.20 Mild intermittent asthma, uncomplicated; M10.9 Gout, unspecified; R76.11 Nonspecific reaction to tuberculin skin test without active tuberculosis; Z87.01 Personal history of pneumonia (recurrent)
CPT/HCPCS: 36415; 71045-TC-FY; 80053; 85027; 86780; C9803; U0003; U0005